=== PATIENT | male | born 1955 | race Caucasian/White ===

== ENCOUNTER 2016-08-26 06:08 | Day surgery (SDC) | payer MEDICARE ==
[~2016-08-26 06:08] MED LIST: ACT300 PO; ASAB PO; FLEX PO; KLONO1 PO; LOP25 PO; LYRICA300 MG PO; LYRICA75 PO; MOBIC15 MG PO; NITROQUICK0.4 MG SL; NORV5 PO; OXYCOD PO; OXYCONTIN60 MG PO; P20 PO; PLAVIX PO; PROAIR HFA INH; ULORIC80 MG PO
== END 2016-08-26 17:16 | disposition home or self-care (01) ==
LOC: SDC 06:08
PROVIDERS: Orthopaedic Surgery
PROC: 3E0S33Z Introduction of Anti-inflammatory into Epidural Space, Percutaneous Approach (ICD-10-PCS; principal; 2016-08-26 08:30)
DX: M54.14 Radiculopathy, thoracic region (principal); I10 Essential (primary) hypertension; M10.9 Gout, unspecified; M19.90 Unspecified osteoarthritis, unspecified site; Z96.652 Presence of left artificial knee joint; Z88.5 Allergy status to narcotic agent; Z88.8 Allergy status to other drugs, medicaments and biological substances; Z90.89 Acquired absence of other organs; Z87.442 Personal history of urinary calculi
CPT/HCPCS: J1040; J2250; J3010; Q9967